=== PATIENT | female | born 1950 | race Caucasian/White ===

== ENCOUNTER → 2021-12-01 | Outpatient (CLI) | payer MEDICARE, OTHER ==
--- NOTE | 2021-12-01 15:26 | DIREP ---
PROCEDURE:MRI UPPER EXTREM JOINT W O CON RIGHT COMPARISON:None. INDICATIONS:RT SHOULDER PAIN TECHNIQUE:A variety of imaging planes and parameters were utilized for visualization of suspected pathology. Images were performed without contrast. FINDINGS: ROTATOR CUFF REGION CUFF TENDONS:Moderate grade undersurface partial tear of the supraspinatus insertion measures 19 mm in AP and 13 mm in transverse dimensions involves slightly more than 50% of the tendon thickness. Tendinosis of the supraspinatus, infraspinous sub scapularis. Teres minor tendon is intact. CUFF MUSCLES:Normal appearing muscles. DELTOID:Normal. No significant atrophy or tear. LONG BICEPS TENDON:Normal. No abnormal signal, attrition, or tear. LABRUM/BICEPS ANCHOR SUPERIOR:Fraying of the superior labrum. ANTERIOR/INFERIOR:Normal. No visible tear or attrition. POSTERIOR:Normal. No posterior labrum abnormality. CAPSULE ANTERIOR/INFERIOR:Normal. No visible capsular laxity or thickening. POSTERIOR:Normal. No visible capsular laxity or thickening. AC JOINT REGION AC JOINT:Normal acromioclavicular joint. AC LIGAMENTS:Moderate arthropathy. Undersurface mass-effect. CC LIGAMENTS:Normal coracoclavicular ligaments. 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 SUBACROMIAL BURSA:Mild effusion. HYALINE CARTILAGE:Mild thinning of the cartilage. OTHER BONES:Subcortical cystic changes at the greater tuberosity. OTHER OBSERVATIONS:Negative. No other significant findings or glenohumeral effusion. CONCLUSION: 1. Moderate grade undersurface partial tear of the supraspinatus insertion measures 19 x 13 mm superimposed on tendinosis. 2. Superior labrum is frayed. Dictated by: Brice Garcia M.D. on 12/01/2021 at 03:20 PM
== END | disposition home or self-care (01) ==
LOC: RAD 12:31
PROVIDERS: ATTEND Orthopaedic Surgery
DX: M75.111 Incomplete rotator cuff tear or rupture of right shoulder, not specified as traumatic (principal); M25.411 Effusion, right shoulder; M25.511 Pain in right shoulder
CPT/HCPCS: 73221-RT

== ENCOUNTER → 2021-12-25 | Outpatient (CLI) | payer MEDICARE, OTHER ==
[~2021-12-25] MED LIST: KENALOG-40 IJ ONE; LIDOCAINE 1% VIAL IJ ONE
--- NOTE | 2021-12-26 09:01 | DIREP ---
PROCEDURE:FLUOROSCOPIC GUIDANCE NEEDLE PLACEMENT FOR RIGHT HIP INJECTION COMPARISON:None. INDICATIONS:OA RIGHT HIP TECHNIQUE:After explaining the risks, benefits, and alternatives, both oral and written informed consent was obtained from the patient for fluoroscopically-guided hip steroid injection. The patient's right hip area was sterilely prepped and draped. The proposed needle tract was anesthetized with 1% lidocaine solution. Under fluoroscopic guidance, a 22 gauge spinal needle was advanced into the right hip joint. A small amount of contrast was injected confirm positioning. A mixture of 6 cc 2% lidocaine, and 1 cc of Kenalog 40 was injected into the hip joint. The needle was then removed. The patient experienced no postprocedural complication. Total fluoroscopy time 1.3 minutes FINDINGS:Imaging documents needle placement and injection of the right femoral head and anatomic neck. CONCLUSION:Fluoroscopic-guided right hip joint injection without immediate complication. Dictated by: Israel Ghosh M.D. on 12/26/2021 at 08:58 AM
== END | disposition home or self-care (01) ==
LOC: RAD 13:37
PROVIDERS: ATTEND Orthopaedic Surgery
DX: M16.11 Unilateral primary osteoarthritis, right hip (principal)
CPT/HCPCS: 20610; 77002; J2001; J3301; Q9966

== ENCOUNTER → 2022-02-05 | Day surgery (SDC) | payer MEDICARE, OTHER ==
--- NOTE | 2022-01-30 12:04 | PCM.EKG ---
[facility] Test Date: 2022-01-30 Test Time: 12:01:47 Pat Name: KARIN CHARLES Department: Room: Gender: F Program Paraprofessional: : [id number] Requested By: EMMA WILSON Order Number: [id number] Reading MD: Measurements Intervals [place] Rate: 64 P: 66 WV: 153 QRS: 45 QRSD: 98 T: 66 QT: 434 QTc: 448 Interpretive Statements Sinus rhythm No previous ECG available for comparison Please click the below link to view image of tracing.
[2022-01-30 12:16] LABS: CARBON DIOXIDE 30.2 mmol/L (20.0-32)
[~2022-02-05] VITALS: Ht 165.1 cm; Wt 81.2 kg
[~2022-02-05] MED LIST changes: +DIPRIVAN IV ONE; +INSU100V35 SQ; -KENALOG-40 IJ ONE; +LEVO75TA6 PO; -LIDOCAINE 1% VIAL IJ ONE; +LOSA50TA14 PO; +METF10007 PO; +NS 1000ML 1,000 ML IV SCH; +SIMV20TA19 PO; +SODIUM CHLORIDE IRR BOTTLE IR ONE; +VERSED ONE; +XYLOCAINE 1%-EPI 1:100,000 ONE
[2022-02-05 09:13] VITALS: BP 160/91
[2022-02-05 12:22] VITALS: BP 148/94
[2022-02-05 12:35] VITALS: BP 186/86
[2022-02-05 12:38] VITALS: BP 148/94
--- NOTE | 2022-02-05 12:40 | OPH ---
DATE OF SURGERY: 02/05/2022 DICTATOR NAME: Lavon Yan MD PREOPERATIVE DIAGNOSIS: Left carpal tunnel syndrome. POSTOPERATIVE DIAGNOSES: Left carpal tunnel syndrome. OPERATIVE PROCEDURE: Left carpal tunnel release. SURGEON: Lavon Yan MD. ANESTHESIA: Local plus IV sedation. TOURNIQUET TIME: 11 minutes at 300 mmHg. DRAINS: None. BLOOD LOSS: 5 mL DESCRIPTION OF INDICATIONS: The patient is a 71-year-old female with numbness and paresthesias about the median nerve distribution for the last 6-8 months. The patient has tried bracing as well as anti-inflammatories. Six months ago, she had a cortisone injection in the carpal tunnel, which helped her for several days. The patient is no better with bracing or anti-inflammatories. She has a positive median nerve compression test as well as a positive Tinel sign and a positive Phalen's test. Admitted today for left carpal tunnel release. DESCRIPTION OF PROCEDURE: The patient was placed on the operating table in the supine position. The patient was given IV sedation. The left upper extremity was sterilely prepped and draped. The incision area was injected with Marcaine with epinephrine. After several minutes, the arm was exsanguinated and the tourniquet was inflated to 300. The patient then had a longitudinal incision made about the base of the palm in line with the thenar crease. The incision was taken through the skin and the subcutaneous tissues. The palmar fascia was identified and released proximally. The Ramer elevator was then passed beneath the transverse carpal ligament. The transverse carpal ligament was then released with a 15 blade. The patient had the nerve and the tendons explored and there was no iatrogenic damage. The wounds were then copiously irrigated and closed with a 3-0 Ethilon in a horizontal mattress method. The patient had a compressive dressing consisting of Adaptic, 4 x 4s, cast padding and Michael wrap applied. The tourniquet was released. The patient was sent to recovery in stable condition. Lavon Yan MD DR: ROSANNE/SULEMAN TID: [id number] RECEIPT: [id number]
[2022-02-05 12:45] VITALS: BP 184/77
[2022-02-05 13:00] VITALS: BP 184/80
== END | disposition home or self-care (01) ==
LOC: SURG 09:00
PROVIDERS: ATTEND Orthopaedic Surgery
DX: G56.02 Carpal tunnel syndrome, left upper limb (principal); I10 Essential (primary) hypertension; E11.9 Type 2 diabetes mellitus without complications; E78.00 Pure hypercholesterolemia, unspecified; Z90.49 Acquired absence of other specified parts of digestive tract; Z98.890 Other specified postprocedural states; Z90.89 Acquired absence of other organs; Z80.1 Family history of malignant neoplasm of trachea, bronchus and lung; Z88.0 Allergy status to penicillin
CPT/HCPCS: 36415; 64721; 80048; 93005; A4217; J2250; J3490

== ENCOUNTER → 2022-03-12 | Outpatient (CLI) | payer MEDICARE, OTHER ==
[~2022-03-12] MED LIST changes: -DIPRIVAN IV ONE; +KENALOG-40 ONE; +LIDOCAINE 1% VIAL ONE; -NS 1000ML 1,000 ML IV SCH; -SODIUM CHLORIDE IRR BOTTLE IR ONE; -VERSED ONE; -XYLOCAINE 1%-EPI 1:100,000 ONE
--- NOTE | 2022-03-16 10:10 | DIREP ---
PROCEDURE:FLUOROSCOPIC GUIDANCE NEEDLE PLACEMENT COMPARISON:None. INDICATIONS:OA LEFT HIP;1 image, 2cc [id number], 29.75 mGy, 0.8fluoro time TECHNIQUE:After explaining the risks, benefits, and alternatives, both oral and written informed consent was obtained from the patient for fluoroscopically-guided hip steroid injection. The patient's left hip area was sterilely prepped and draped. The proposed needle tract was anesthetized with 1% lidocaine solution. Under fluoroscopic guidance, a 22 gauge spinal needle was advanced into the left hip joint. A small amount of contrast was injected confirm positioning. A mixture of 6 cc 2% lidocaine, and 1 cc of Kenalog 40 was injected into the hip joint. The needle was then removed. The patient experienced no postprocedural complication. Total fluoroscopy time 0.8 minutes FINDINGS:Imaging documents needle placement and injection of the left femoral head and anatomic neck. CONCLUSION:Fluoroscopic-guided left hip joint injection. Dictated by: Swapna Trejo MD on 03/16/2022 at 10:07 AM
== END | disposition home or self-care (01) ==
LOC: RAD 10:29
PROVIDERS: ATTEND Orthopaedic Surgery
DX: M16.12 Unilateral primary osteoarthritis, left hip (principal)
CPT/HCPCS: 20610; 77002; J2001; J3301; Q9966

== ENCOUNTER → 2024-09-20 | Outpatient (CLI) | payer MEDICARE, OTHER ==
[~2024-09-20] MED LIST changes: -KENALOG-40 ONE; -LIDOCAINE 1% VIAL ONE
== END | disposition home or self-care (01) ==
LOC: BD 09:53
PROVIDERS: ATTEND Nurse Practitioner Family
DX: M85.89 Other specified disorders of bone density and structure, multiple sites (principal); Z13.820 Encounter for screening for osteoporosis; Z78.0 Asymptomatic menopausal state
CPT/HCPCS: 77080

== ENCOUNTER → 2024-10-11 | Outpatient (CLI) | payer MEDICARE, OTHER | END | disposition home or self-care (01) | LOC: RAD 14:12 | PROVIDERS: ATTEND Nurse Practitioner Family | DX: I70.203 Unspecified atherosclerosis of native arteries of extremities, bilateral legs (principal); M79.604 Pain in right leg; M79.605 Pain in left leg | CPT/HCPCS: 93922; 93925; 93970 ==